=== PATIENT | female | born 1970 | race Caucasian/White ===

== ENCOUNTER 2021-04-07 08:08 | Emergency (ER) | payer BC, OTHER ==
[~2021-04-07] VITALS: Ht 157.5 cm; Wt 62.6 kg
--- NOTE | 2021-04-07 08:15 | NUR ---
on and off palpitation worst the past 2 days. Patient a/ox4, breathing even and unlabored, no sob noted, needs attended. Dr. Kirkpatrick at bedside for eval. EMT at bedside for EKG.
[2021-04-07] MEDS ORDERED: LORAZEPAM INJ 2 MG/ML VIAL ONE (08:33)
[2021-04-07] MEDS: LORAZEPAM INJ 2 MG/ML VIAL IV ONE (08:42)
[2021-04-07] MEDS: IV NS 0.9% 1,000 ML IV ONE (08:43)
[2021-04-07 08:51] LABS: MEAN CORPUSCULAR HGB CONC 34 g/dl (31.0-36.0); NEUTROPHILS # (AUTO) 3.7 K/uL (1.8-8.9); RED BLOOD CELL COUNT(AUTO) 4.68 MIL/uL (4.0-5.2)
[2021-04-07 09:00] LABS: BASOPHILS % (AUTO) 0.8 % (0.0-2.0); EOSINOPHILS % (AUTO) 0.7 % (0.0-6.0); HEMATOCRIT 43 % (33-45); HEMOGLOBIN 14.6 g/dL (11.5-14.8); LYMPHOCYTES # (AUTO) 1.8 K/uL (0.8-4.8); LYMPHOCYTES % (AUTO) 30.5 % (20.0-44.0); MEAN CORPUSCULAR VOLUME 92 fL (82-100); MONOCYTES # (AUTO) 0.4 K/uL (0.1-1.30); MONOCYTES % (AUTO) 6.5 % (2.0-12.0); NEUTROPHILS % (AUTO) 61.5 % (43.0-81.0); PLATELET COUNT (AUTO) 350 K/uL (150-450)
[2021-04-07 09:03] LABS: CALCIUM, SERUM 9.1 mg/dL (8.5-10.1); CARBON DIOXIDE 27 mmol/L (21-32); CHLORIDE 104 mmol/L (98-107); CREATININE 0.8 mg/dL (0.6-1.3); GLUCOSE 99 mg/dL (74-106); POTASSIUM 3.7 mmol/L (3.5-5.1); SODIUM SERUM 141 mmol/L (136-145); UREA NITROGEN, BLOOD 16 mg/dL (7-18)
[2021-04-07] MEDS ORDERED: ESCI5TAB PO (10:07)
[2021-04-07 10:11] LABS: THYROID STIMULATING HORMONE 3.675 uIU/mL (0.358-3.74)
--- NOTE | 2021-04-07 10:16 | NUR ---
Patient a/ox4, breathing even and unlabored, no sob noted, needs attended, kept comfortable. Patient denies any pain or discomfort. No c/o arm numbness or tingling. IV removed. Catheter intact and site benign. Pressure and 4x4 applied to site. No bleeding noted. Patient discharged to home in stable condition. Written and verbal after care instructions given. Patient verbalizes understanding of instruction.
[2021-04-07 10:18] VITALS: BP 131/88
== END 2021-04-07 10:19 | disposition home or self-care (01) ==
LOC: ER 08:09
DX: R00.2 Palpitations (principal); Z79.899 Other long term (current) drug therapy
CPT/HCPCS: 36415; 71045; 80048; 83735; 83880; 84439; 84443; 84484; 85025; 85378; 93005; 96361; 96374; 99285; J2060; J7030